=== PATIENT | female | born 1985 | race Caucasian/White ===

== ENCOUNTER 2016-12-04 22:51 | Emergency (ER) | payer OTHER ==
--- NOTE | 2016-12-05 06:36 | DIAGNOSTIC IMAGING REPORT ---
PROCEDURE: CT ABD/PELVIS WITH CONTRAST CLINICAL INDICATION: ABDOMINAL PAIN TECHNIQUE: 125 ml of Isovue 300 were injected intravenously and axial images were obtained of the entire abdomen and pelvis with sagittal and coronal reformations. COMPARISON: None. FINDINGS: ABDOMEN: Lung base are clear. Heart size is normal. Liver, gallbladder, pancreas, spleen, right adrenal gland and the kidneys are normal. Thickening of the left adrenal gland. Normal abdominal aorta. Surgical changes of the cecum and distal ileum PELVIS: The uterus, adnexa and bladder are normal. Small amount of free fluid the pelvis. No pelvic mass or inflammatory changes. 2.5 cm fat-containing midline supraumbilical hernia. No suspicious osseous lesions. IMPRESSION: 1. Surgical changes of the cecum and distal ileum 2. Small amount of free fluid in the pelvis 3. Results discussed with Dr. Reddy All CT scans at this facility use dose modulation, iterative reconstruction, and/or weight-based dosing when appropriate to reduce radiation dose to as low as reasonably achievable.
--- NOTE | 2016-12-05 06:48 | ED CLINICAL REPORT ---
Clinical Report - Physicians/Mid Levels [facility] [address] [place] [address] 12/04/2016 22:52 Patient: CAMILO BISWAS Time Seen: 23:22. Arrived- By private vehicle. Historian- patient. HISTORY OF PRESENT ILLNESS Chief Complaint: DIARRHEA. Depression. This started today and is still present. It was gradual in onset and has been waxing/waning. No vomiting, black stools, bloody stools or abdominal pain. She has had mild diarrhea. No bloody diarrhea. Has recently been on antibiotics. The illness is described as moderate. (Pt is currently a patient at the [facility] in [facility]. She presents with a report of diarrhea. She has a long history of Crohn's disease and is having her baseline number of stools per day (about 3 today - nonbloody; she has up to 30 with Crohn's flares). The facility requests medical clearance Patient states she has recently had an increase in a dose of her effexor for depression and has been experiencing increased depression and suicidal ideations since then. She went to the [facility] facility today to check in voluntarily. She reports that [facility] sent her to this ED "to stay the night and get cleared medically" before she is able to check in). Similar symptoms previously: Recent medical care: The patient was seen recently by a health care provider. REVIEW OF SYSTEMS No fever, muscle aches, difficulty with urination, dark urine or headache. No dizziness, sore throat, cough, chest pain or difficulty breathing. No excessive urination, skin rash, jaundice, back pain or fainting episodes. Denies current . All systems otherwise negative, except as recorded above. PAST HISTORY Primary physician: Dr Arcos at [facility]. Asthma. Pulmonary embolism. Pneumonia. Anemia. History of headaches. Crohn's disease (followed by GI). Anxiety. Depression. Surgeries: Bowel surgery (partial resection for Crohn's). Right knee surgery (ACL). (Anal fistula repair). Medications: KlonoPIN Oral. Albuterol Sulfate Inhalation. Vitamin D Oral 10,000 unit. PriLOSEC Oral (Capsule Delayed Release 20 mg) 1 capsule, 2x a day. Effexor XR Oral 75 mg, daily. Ferrous Sulfate Oral (Tablet 325 (65 Fe) mg), 2x a day. Spironolactone Oral (Tablet 50 mg) 1 tablet, daily. Mirapex Oral (Tablet 1 mg) 2 tablets, at bedtime. Allergies: morphine. Penicillin. SOCIAL HISTORY Smoker- current status unknown. No alcohol use or drug use. Is a local resident. FAMILY HISTORY Dad had throat cancer. ADDITIONAL NOTES The nursing notes have been reviewed. PHYSICAL EXAM Vital Signs: 12/04/2016 23:36 BP: 123/66. HR: 75. RR: 16. O2 saturation: 99%. Temp: 98.1 F. Pain level now: 0/10. Appearance: Alert. Oriented X3. Patient in mild distress. Eyes: Eyes normal inspection. No pale conjunctivae or scleral icterus. ENT: Pharynx normal. No pharyngeal erythema or tonsillar exudate. The mucous membranes are not dry. Neck: Normal inspection. Neck supple. CVS: Normal heart rate and rhythm. Heart sounds normal. Pulses normal. Respiratory: No respiratory distress. Breath sounds normal. Abdomen: Soft and nontender. No mass. Back: Normal inspection. Skin: Skin warm and dry. Normal skin color. Normal skin turgor. Extremities: Extremities exhibit normal ROM. No lower extremity edema. Neuro: Oriented X 3. No motor deficit. LABS, X-RAYS, AND EKG Abdominal CT: IMPRESSION: 1. Surgical changes of the cecum and distal ileum 2. Small amount of free fluid in the pelvis. Study type: abdomen and pelvis. Abdominal CT performed with IV contrast. The study was independently viewed by me, interpreted by the radiologist and discussed with the radiologist. Laboratory Tests: UA-Culture if indicated: (BRANDON: 12/04/2016 02:30) ( MsgRcvd 12/05/2016 02:46) Final results Test Result Flag Units (Reference) URINE COLOR YELLOW URINE APPEARANCE SLIGHTLY HAZY URINE GLUCOSE NEGATIVE (NEGATIVE) URINE BILIRUBIN NEGATIVE (NEGATIVE) URINE KETONE NEGATIVE (NEGATIVE) URINE SPECIFIC GRAVITY >= 1.030 (1.010-1.030) URINE PH 6.0 (5.0-8.0) URINE PROTEIN NEGATIVE (NEGATIVE) URINE UROBILINOGEN 0.2 EU/dL (0.2-1.0) URINE NITRITE NEGATIVE (NEGATIVE) URINE BLOOD NEGATIVE (NEGATIVE) URINE LEUK ESTERASE POSITIVE (NEGATIVE) URINE RBC 0-1 rbc/hpf (0-1) URINE WBC 10-15 wbc/hpf (0-1) URINE EPITHELIAL CELLS 5-10 EPI/hpf (0-5) URINE BACTERIA TRACE (<1+) (NONE SEEN) URINE COMMENT CULTURE INDICATED URINE CULTURES ARE SET-UP BASED ON THE FOLLOWING CRITERIA:POSITIVE NITRITEPOSITIVE LEUKOCYTE ESTERASEGREATER THAN 10 WHITE BLOOD CELLSMODERATE (2+) OR GREATER BACTERIA Urine: (BRANDON: 12/04/2016 02:30) ( [facility] 12/05/2016 02:47) Final results Test Result Flag Units (Reference) URINE NEGATIVE CBC w Diff: (BRANDON: 12/04/2016 23:47) ( [facility] 12/05/2016 00:09) Final results Test Result Flag Units (Reference) WHITE BLOOD COUNT 11.9 H K/uL (4.5-11.5) RED BLOOD COUNT 4.11 M/uL (4.00-5.20) HEMOGLOBIN 13.5 gm/dL (12.0-16.0) HEMATOCRIT 39.8 % (36.0-46.0) MEAN CELL VOLUME 97 fL (80-100) MEAN CORPUSCULAR HGB 33 pg (26-34) MEAN CORPUSCULAR HGB CONC 34 g/dL (31-37) RED CELL DISTRIBUTION WIDTH 13.5 % (11.6-14.8) PLATELET COUNT 385 K/uL (150-400) NEUTROPHIL % 59.9 % (50-75) LYMPH % 30.2 % (25-40) MONO % 6.9 % (3-14) EOSINOPHIL % 2.5 % (0-4) BASOPHIL % 0.5 % (0-2) Salicylate Level: (BRANDON: 12/04/2016 23:47) ( [facility] 12/05/2016 00:16) Final results Test Result Flag Units (Reference) SALICYLATE 3.9 mg/dL (2.8-20) Acetaminophen Level: (BRANDON: 12/04/2016 23:47) ( [facility] 12/05/2016 00:26) Final results Test Result Flag Units (Reference) ACETAMINOPHEN < 2.0 L ug/mL (10-30) ETHYL ALCOHOL <3 L mg/dL (3-10) Urine Drug Screen: (BRANDON: 12/04/2016 02:30) ( [facility] 12/05/2016 03:15) Final results Test Result Flag Units (Reference) AMPHETAMINE/METHAMPHETAMINE NEGATIVE (NEGATIVE) BARBITURATE NEGATIVE (NEGATIVE) BENZODIAZEPINE NEGATIVE (NEGATIVE) CANNABINOID NEGATIVE (NEGATIVE) COCAINE NEGATIVE (NEGATIVE) ECSTASY NEGATIVE (NEGATIVE) METHADONE NEGATIVE (NEGATIVE) OPIATE NEGATIVE (NEGATIVE) The urine drug screen is a qualitative screening test fordrug overdose and abuse. All screen results should beconsidered as presumptive.Drugs screened for are as follows:BenzodiazepinesCocaineAmphetamines/MetamphetaminesTHC (Tetrahydrocannabinol)OpiatesBarbituratesEcstasyMethadonePositive results are unconfirmed. For confirmation, notifythe lab for the specimen to be sent to the reference lab.All confirmations must be performed by a differentmethodology.The ingestion of natural herbal and plant productscontaining Ephedra/Ephedra metabolites can produce in urineone or more substances capable of cross reacting withamphetamine/methamphetamine immunoassays. These testsprovide a preliminary result only. A more specificalternative chemical method must be used to obtain aconfirmed analytical result. CMP: (BRANDON: 12/04/2016 23:47) ( [facility] 12/05/2016 01:08) Final results Test Result Flag Units (Reference) GLUCOSE 89 mg/dL (70-110) BUN 11 mg/dL (7-18) CREATININE 0.7 mg/dL (0.6-1.3) Estimated GFR >60 mL/min Estimated GFR- >60 mL/min Note: Persistent reduction over 3 months in eGFR<60 mL/min/1.73 m2 defines CKD. Patients with eGFR values>=60 mL/min/1.73 m2 may also have CKD if evidence ofpersistent proteinuria. Additional information may be foundat www.[email or web address].org. SODIUM 137 mmol/L (136-145) POTASSIUM 3.8 mmol/L (3.5-5.1) CHLORIDE 101 mmol/L (98-107) CARBON DIOXIDE 26 mmol/L (21-32) CALCIUM 9.0 mg/dL (8.5-10.1) TOTAL PROTEIN 7.7 g/dL (6.4-8.2) ALBUMIN 3.7 g/dL (3.3-5.0) BILIRUBIN, TOTAL 0.3 mg/dL (0.0-1.0) ALKALINE PHOSPHATASE 74 U/L (46-116) AST (SGOT) 14 L U/L (15-37) ALT (SGPT) 26 U/L (12-78) . Pulse Oximetry: 12/04/2016 23:36 O2 saturation: 99%. (FIO2 - room air). Interpretation: normal. PROGRESS AND PROCEDURES Course of Care: Normal Saline 1 liter IVPB given. Zofran 4 mg IVP given. Protonix 40 mg IVP given. Dilaudid 0.5 mg IVP given. 03:57 12/05/16. Patient is stable. 03:57 12/05/16. Pt has noted some abdominal discomfort now (states it is improving from earlier, but still present). Long history of Crohn's disease, but discomfort is somewhat different now than usual - pt believes it is related to not taking her usual medication at the usual time. She states she does not feel that she will currently try and harm herself or others - improved over earlier in the evening. No bed tonight at [facility], but expect opening in the am - pt expecting to stay the night in the ED and is concerned about getting home tonight. Discussed option of CT abd/pelvis with patient including risks (of radiation / cancer) and need to medically clear for the psychiatric facility - patient consents to proceed. Patient/family counseled. Old ED records reviewed. Disposition: Transferred. [facility]. CLINICAL IMPRESSION Diarrhea (chronic - secondary to Crohn's disease). Acute generalized abdominal pain of undetermined cause. Crohn's disease. No complications present. Acute urinary tract infection with cystitis. 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 INSTRUCTIONS Your Current Medications: CONTINUE TAKING THE FOLLOWING MEDICATIONS: Albuterol Sulfate Inhalation. Effexor XR Oral : 75 mg daily. Ferrous Sulfate Oral : Tablet 325 (65 Fe) mg, 2x a day. KlonoPIN Oral. Mirapex Oral : Tablet 1 mg, 2 tablets at bedtime. PriLOSEC Oral : Capsule Delayed Release 20 mg, 1 capsule 2x a day. Spironolactone Oral : Tablet 50 mg, 1 tablet daily. Vitamin D Oral : 10,000 unit. Prescription Medications: Trimethoprim-Sulfamethoxazole DS: take 1 tablet orally every 12 hours for 3 days. No refill. (Electronically signed by Polo Reddy DO 12/06/2016 8:29)
--- NOTE | 2016-12-05 06:48 | ED ORDER SUMMARY ---
..... Patient: CAMILO BISWAS OrderSheet [facility] VisitID: [id number] [place] [address] 31y, F Registration Date/Time: 12/04/2016 ORDER SHEET Weight: 77.1 kg (stated) Allergies: Penicillin, morphine GENERAL ORDERS: CBC w Diff Urgent (23:12/04/2016 PHutchinson DO) (Collected 23:51 RMarsden R.N.) (1:04 JSanders R.N.) CMP Urgent (23:12/04/2016 PHutchinson DO) (Collected 23:51 RMarsden R.N.) (1:04 JSanders R.N.) Stool for C. Difficile Urgent (:12/04/2016 son DO) (Ack 23:59 RKaruga) (Cancelled: Other2:43 JSanders R.N.) UA-Culture if indicated Urgent (23:12/04/2016 PHson DO) (Ack 23:59 RKaruga) (2:43 JSanders R.N.) Urine Drug Screen Urgent (23:27 12/04/2016 PHutchinson DO) (Ack 23:59 RKaruga) (2:43 JSanders R.N.) Urine Urgent (23:12/04/2016 PHutchinson DO) (Ack 23:59 RKaruga) (2:43 JSanders R.N.) Ethyl Alcohol Urgent (23:36 12/04/2016 PHutchinson DO) (Collected 23:51 RMarsden R.N.) (1:04 JSanders R.N.) Acetaminophen Level Urgent (23:36 12/04/2016 PHutchinson DO) (Collected 23:51 RMarsden R.N.) (1:04 JSanders R.N.) Salicylate Level Urgent (:12/04/2016 PHutchinson DO) (Collected 23:51 RMarsden R.N.) (1:04 JSanders R.N.) CT Abd/Pel w Cont (No) (GFR ok) (history of Crohn's disease and partial bowel resection) Urgent (05:20 12/05/2016 [facility]) (Ack 5:40 RKaruga) (6:55 JSanders R.N.) MEDICATION ORDERS: IV FLUIDS: IV NS : initial bolus 1000 mL (1000 mL/hr), then 1000 mL/hr for X2 (NOW) (23:26 12/04/2016 [facility]) (1:09 JSanders R.N.) Zofran IV 4 mg (NOW) (01:32 12/05/2016 [facility]) (Ack 1:40 JSanders R.N.) (2:01 JSanders R.N.) Protonix IVP 40mg 40 mg (Mix in NS 10ml over 2min) (01:33 12/05/2016 [facility]) (Ack 1:40 JSanders R.N.) (2:04 JSanders R.N.) Dilaudid IV 0.5 mg (HIGH ALERT MEDICATION, NOW) (03:55 12/05/2016 [facility]) (Ack 4:09 JSanders R.N.) (4:13 JSanders R.N.) Dilaudid IV 0.5 mg (HIGH ALERT MEDICATION, NOW) (05:20 12/05/2016 [facility]) (5:27 Luannou R.N.) ORDER SHEET NOTES: [Electronically signed by Jocelyn Mayorga R.N. (09:58 12/05/2016)] [Electronically signed by Polo Reddy DO (08:29 12/06/2016)] [Electronically locked/signed by Jocelyn Mayorga R.N. (09:58 12/05/2016)]
--- NOTE | 2016-12-05 06:48 | ED NURSING NOTES ---
Clinical Report - Nurses [place] [address] [place] [address] 12/04/2016 22:52 Patient: CAMILO BISWAS TRIAGE Triage time 21:07. Acuity: LEVEL 2. Chief Complaint: DEPRESSION and SUICIDAL THOUGHTS and (medical clearance). Alert. No acute distress. SEPSIS SCREEN: Sepsis Screen. Negative (no infection suspected/documented). ZAHIDA COMA SCORE: [place] Coma Scale: 15- eyes open spontaneously (4); best verbal response- oriented x 4 (5); best motor response- obeys commands (6). --23:33 Cherrie Adams R.N. 23:36 12/04/16. BP: 123/66 taken on the left arm, while sitting. HR: 75. RR: 16. O2 saturation: 99%. Temp: 98.1 F. Pain level now: 0/10. --23:38 Cherrie Adams R.N. Weight: 77.1 kg stated. Height/Length: 68 inches. BMI: 25.9. --23:32 Cherrie Adams R.N. Medications Mirapex Oral (Tablet 1 mg) 2 tablets, at bedtime. --23:23 Cherrie Adams R.N. Spironolactone Oral (Tablet 50 mg) 1 tablet, daily. --23:23 Cherrie Adams R.N. Ferrous Sulfate Oral (Tablet 325 (65 Fe) mg), 2x a day. --23:24 Cherrie Adams R.N. Effexor XR Oral 75 mg, daily. --23:24 Cherrie Adams R.N. PriLOSEC Oral (Capsule Delayed Release 20 mg) 1 capsule, 2x a day. --23:24 Cherrie Adams R.N. Vitamin D Oral 10,000 unit. --23:25 Cherrie Adams R.N. Colonapine 1mg, PRN. --23:26 Cherrie Adams R.N. Albuterol Sulfate Inhalation. --23:27 Cherrie Adams R.N. Allergies Penicillin. --23:26 Cherrie Adams R.N. morphine. --23:26 Cherrie Adams R.N. History Arrived by private vehicle. Historian: patient. Accompanied by family. Primary physician (Dr Josselyn Chase [facility]). ( Patient states she has recently had an increase in a dose of her effexor for depression and has been experiencing increased depression and suicidal ideations since then. She went to the [facility] facility today to check in voluntarily. She reports that [facility] sent her to this ED "to stay the night and get cleared medically" before she is able to check in.). She has had anxiety and sleeping difficulties. ( diarrhea). PAST MEDICAL HX: Immunizations: up-to-date. Denies current . SOCIAL HX: Heavy tobacco smoker- less than 1 pack per day. No alcohol use or drug use. SELF HARM ASSESSMENT: A self harm assessment was performed. The patient answered "yes" to the question "Have you recently felt down, depressed, or hopeless?", "Have you noticed less interest or pleasure in doing things?", "Do you have thoughts of harming or killing yourself?" and "Have you ever tried to hurt yourself before today?" and "no" to the question "Are you here because you tried to hurt yourself?", "Have you recently had thoughts about harming or killing others?" and "Do you have any dangerous items in your possession?". FALL RISK ASSESSMENT: Fall risk assessment completed. No fall risk identified. NUTRITIONAL RISK ASSESSMENT: The nutritional risk assessment revealed no deficiencies. FUNCTIONAL ASSESSMENT: Functional assessment: no impairments noted. LEARNING NEEDS ASSESSMENT: The learning needs assessment revealed no barriers. SKIN INTEGRITY ASSESSMENT: Skin integrity risk assessment completed. No skin integrity risk identified. --23:33 Cherrie Adams R.N. PROBLEMS: Depression. Eustachian Tube Dysfunction. Pharyngitis. Perianal abscess. Strep Throat. Chronic Headache. Head Injury. Migraine Headache. Concussion. Crohn's Disease. LNMP - Last Normal Menstrual Period. Pneumonia. Pulmonary Embolism. Chrons disease. --23:27 Cherrie Adams R.N. Asthma. --23:27 Cherrie Adams R.N. ADDITIONAL SURGERIES: ACL on right knee. Colon resection. Knee Surgery. --23:27 Cherrie Adams R.N. Anal fistula repair. --23:28 Cherrie Adams R.N. Interventions ID band on patient. To treatment room. --23:33 Cherrie Adams R.N. PHYSICAL ASSESSMENT <<STRICKEN ENTRY-- To room via stretcher. GENERAL / NEURO / PSYCH: Alert. Appears in no acute distress. The patient is disoriented to person, place and time. Speech within normal limits. Affect appears normal. Patient appears calm and cooperative. Good eye contact. Patient appears well-nourished and neat and clean. RESPIRATORY: Respirations not labored. CVS: Capillary refill less than 2 seconds. SKIN: Skin is warm and dry. Laceration; (Left upper eyelid). --04:46 Sheriff Gibbons R.N. --END STRIKE>> Charted On Wrong Patient --04:47 Sheriff Gibbons R.N. NURSING PROGRESS NOTES 23:51 12/04/2016 Site #1 started via IV in the right antecubital space with an 20g angiocath; one attempt. Blood drawn: rainbow set. Labeled in the presence of the patient and sent to the lab. Saline lock flushed with 5 mL saline. --23:51 Cherrie Adams R.N. 23:54 12/04/16. Care transferred and report given (to Chris TITUS). --23:54 Cherrie Adams R.N. 01:09 12/05/2016 Started bag #1 1000 mL IV Fluids IV NS (Saline); bolus of 1000 mL over 1 hour(s) then at 1000 mL/hr over 1 hour(s) via site #1 via dial-a-flow. Allergies verified and confirmed 5 rights. IV patency established. IV site checked: no pain, redness, or swelling. IV flushed thoroughly pre- and post-medication administration. --01:09 Nancy Pacheco R.N. 01:10 12/05/16. BP: 131/72 (large adult cuff) taken on the left arm, while sitting. HR: 80. RR: 18. O2 saturation: 100%. Pain level now: 0/10. --01:14 Nancy Pacheco R.N. 01:14 12/05/16. ( Patient states she is nauseated and needs zofran and prilosec for GERD and nausea, she informed me she took Fe prior to coming in, gave patient crackers to nibble on. Requested medication from Physician). --01:14 Nancy Pacheco R.N. 02:01 12/05/2016 Zofran (Ondansetron HCl) IVP 4 mg given over 2 minute(s) via site #1. Allergies verified and confirmed 5 rights. IV patency established. IV site checked: no pain, redness, or swelling. IV flushed thoroughly pre- and post-medication administration. IVP given by RN. --02:01 Nancy Pacheco R.N. 02:04 12/05/2016 PROTONIX (Pantoprazole Sodium) IVP 40 mg given over 4 minute(s) via site #1. Allergies verified and confirmed 5 rights. IV patency established. IV site checked: no pain, redness, or swelling. IV flushed thoroughly pre- and post-medication administration. IVP given by RN. --02:04 Nancy Pacheco R.N. 02:05 12/05/16. BP: 127/69 (large adult cuff) taken on the left arm. HR: 72. RR: 20. O2 saturation: 98% on room air. Pain level now: 12/10. --02:05 Nancy Pacheco R.N. 04:13 12/05/2016 Dilaudid (HYDROmorphone HCl PF) IVP 0.5 mg given over 2 minute(s) via site #1. Allergies verified, confirmed 5 rights and sedative warning given to the patient. IV patency established. IV site checked: no pain, redness, or swelling. IV flushed thoroughly pre- and post-medication administration. IVP given by RN. --04:13 Nancy Pacheco R.N. 04:13 12/05/16. BP: 130/81 (large adult cuff) taken on the left arm, while sitting. HR: 81. RR: 18 (regular). O2 saturation: 94% on room air. Pain level now: 09/10. --04:16 Nancy Pacheco R.N. 04:16 12/05/16. --04:16 Nancy Pacheco R.N. 05:27 12/05/2016 Dilaudid (HYDROmorphone HCl PF) IVP 0.5 mg given over 1 minute(s) via site #1. Allergies verified, confirmed 5 rights and sedative warning given to the patient. IV patency established. IV site checked: no pain, redness, or swelling. IV flushed thoroughly pre- and post-medication administration. IVP given by RN. --05:27 Sheriff Gibbons R.N. 06:52 12/05/16. ( Patient up walking halls, she states she is anxious). --06:52 Nancy Pacheco R.N. 08:26 12/05/2016 Site #1 removed. Pressure dressing applied. --08:26 Jocelyn Mayorga R.N. ( 0730- Report taken from tacho bustos to assume care. Pt. sleeping. breakfast tray ordered. awaiting bed at [facility].). --08:27 Jocelyn Mayorga R.N. 08:44 12/05/16. ( Pt c/o anxiety, wants to smoke, notified, pt states that if she walks this might helped, walked with patient two laps around the ER and back to room. Pt stated this made her feel better, pt refused nicotine patch.). --08:44 David Temple R.N. DISPOSITION / DISCHARGE Departure time: 09:57. Transferred ([facility].). Report was given to a nurse. (TACHO Mccurdy). Patient's personal items include, sent with patient. --09:57 Jocelyn Mayorga R.N. 09:50 12/05/16. BP: 130/81. HR: 81. RR: 18. O2 saturation: 99%. Pain level now: 0/10. --09:57 Jocelyn Mayorga R.N. Locked/Released at 12/05/2016 9:58 by Jocelyn Mayorga R.N.
--- NOTE | 2016-12-05 06:48 | ED CLINICAL REPORT ---
Clinical Report - Physicians/Mid Levels [facility] [address] [place] [address] 12/04/2016 22:52 Patient: CAMILO BISWAS Time Seen: 23:22. Arrived- By private vehicle. Historian- patient. HISTORY OF PRESENT ILLNESS Chief Complaint: DIARRHEA. Depression. This started today and is still present. It was gradual in onset and has been waxing/waning. No vomiting, black stools, bloody stools or abdominal pain. She has had mild diarrhea. No bloody diarrhea. Has recently been on antibiotics. The illness is described as moderate. (Pt is currently a patient at the [facility] in [facility]. She presents with a report of diarrhea. She has a long history of Crohn's disease and is having her baseline number of stools per day (about 3 today - nonbloody; she has up to 30 with Crohn's flares). The facility requests medical clearance Patient states she has recently had an increase in a dose of her effexor for depression and has been experiencing increased depression and suicidal ideations since then. She went to the [facility] facility today to check in voluntarily. She reports that [facility] sent her to this ED "to stay the night and get cleared medically" before she is able to check in). Similar symptoms previously: Recent medical care: The patient was seen recently by a health care provider. REVIEW OF SYSTEMS No fever, muscle aches, difficulty with urination, dark urine or headache. No dizziness, sore throat, cough, chest pain or difficulty breathing. No excessive urination, skin rash, jaundice, back pain or fainting episodes. Denies current . All systems otherwise negative, except as recorded above. PAST HISTORY Primary physician: Dr Arcos at [facility]. Asthma. Pulmonary embolism. Pneumonia. Anemia. History of headaches. Crohn's disease (followed by GI). Anxiety. Depression. Surgeries: Bowel surgery (partial resection for Crohn's). Right knee surgery (ACL). (Anal fistula repair). Medications: KlonoPIN Oral. Albuterol Sulfate Inhalation. Vitamin D Oral 10,000 unit. PriLOSEC Oral (Capsule Delayed Release 20 mg) 1 capsule, 2x a day. Effexor XR Oral 75 mg, daily. Ferrous Sulfate Oral (Tablet 325 (65 Fe) mg), 2x a day. Spironolactone Oral (Tablet 50 mg) 1 tablet, daily. Mirapex Oral (Tablet 1 mg) 2 tablets, at bedtime. Allergies: morphine. Penicillin. SOCIAL HISTORY Smoker- current status unknown. No alcohol use or drug use. Is a local resident. FAMILY HISTORY Dad had throat cancer. ADDITIONAL NOTES The nursing notes have been reviewed. PHYSICAL EXAM Vital Signs: 12/04/2016 23:36 BP: 123/66. HR: 75. RR: 16. O2 saturation: 99%. Temp: 98.1 F. Pain level now: 0/10. Appearance: Alert. Oriented X3. Patient in mild distress. Eyes: Eyes normal inspection. No pale conjunctivae or scleral icterus. ENT: Pharynx normal. No pharyngeal erythema or tonsillar exudate. The mucous membranes are not dry. Neck: Normal inspection. Neck supple. CVS: Normal heart rate and rhythm. Heart sounds normal. Pulses normal. Respiratory: No respiratory distress. Breath sounds normal. Abdomen: Soft and nontender. No mass. Back: Normal inspection. Skin: Skin warm and dry. Normal skin color. Normal skin turgor. Extremities: Extremities exhibit normal ROM. No lower extremity edema. Neuro: Oriented X 3. No motor deficit. LABS, X-RAYS, AND EKG Abdominal CT: IMPRESSION: 1. Surgical changes of the cecum and distal ileum 2. Small amount of free fluid in the pelvis. Study type: abdomen and pelvis. Abdominal CT performed with IV contrast. The study was independently viewed by me, interpreted by the radiologist and discussed with the radiologist. Laboratory Tests: UA-Culture if indicated: (BRANDON: 12/04/2016 02:30) ( MsgRcvd 12/05/2016 02:46) Final results Test Result Flag Units (Reference) URINE COLOR YELLOW URINE APPEARANCE SLIGHTLY HAZY URINE GLUCOSE NEGATIVE (NEGATIVE) URINE BILIRUBIN NEGATIVE (NEGATIVE) URINE KETONE NEGATIVE (NEGATIVE) URINE SPECIFIC GRAVITY >= 1.030 (1.010-1.030) URINE PH 6.0 (5.0-8.0) URINE PROTEIN NEGATIVE (NEGATIVE) URINE UROBILINOGEN 0.2 EU/dL (0.2-1.0) URINE NITRITE NEGATIVE (NEGATIVE) URINE BLOOD NEGATIVE (NEGATIVE) URINE LEUK ESTERASE POSITIVE (NEGATIVE) URINE RBC 0-1 rbc/hpf (0-1) URINE WBC 10-15 wbc/hpf (0-1) URINE EPITHELIAL CELLS 5-10 EPI/hpf (0-5) URINE BACTERIA TRACE (<1+) (NONE SEEN) URINE COMMENT CULTURE INDICATED URINE CULTURES ARE SET-UP BASED ON THE FOLLOWING CRITERIA:POSITIVE NITRITEPOSITIVE LEUKOCYTE ESTERASEGREATER THAN 10 WHITE BLOOD CELLSMODERATE (2+) OR GREATER BACTERIA Urine: (BRANDON: 12/04/2016 02:30) ( [facility] 12/05/2016 02:47) Final results Test Result Flag Units (Reference) URINE NEGATIVE CBC w Diff: (BRANDON: 12/04/2016 23:47) ( [facility] 12/05/2016 00:09) Final results Test Result Flag Units (Reference) WHITE BLOOD COUNT 11.9 H K/uL (4.5-11.5) RED BLOOD COUNT 4.11 M/uL (4.00-5.20) HEMOGLOBIN 13.5 gm/dL (12.0-16.0) HEMATOCRIT 39.8 % (36.0-46.0) MEAN CELL VOLUME 97 fL (80-100) MEAN CORPUSCULAR HGB 33 pg (26-34) MEAN CORPUSCULAR HGB CONC 34 g/dL (31-37) RED CELL DISTRIBUTION WIDTH 13.5 % (11.6-14.8) PLATELET COUNT 385 K/uL (150-400) NEUTROPHIL % 59.9 % (50-75) LYMPH % 30.2 % (25-40) MONO % 6.9 % (3-14) EOSINOPHIL % 2.5 % (0-4) BASOPHIL % 0.5 % (0-2) Salicylate Level: (BRANDON: 12/04/2016 23:47) ( [facility] 12/05/2016 00:16) Final results Test Result Flag Units (Reference) SALICYLATE 3.9 mg/dL (2.8-20) Acetaminophen Level: (BRANDON: 12/04/2016 23:47) ( [facility] [place] 12/05[facility]:26) Final results Test Result Flag Units (Reference) ACETAMINOPHEN < 2.0 L ug/mL (10-30) ETHYL ALCOHOL <3 L mg/dL (3-10) Urine Drug Screen: (BRANDON: 12/04/2016 02:30) ( [facility] [place] 12/05/2016 03:15) Final results Test Result Flag Units (Reference) AMPHETAMINE/METHAMPHETAMINE NEGATIVE (NEGATIVE) BARBITURATE NEGATIVE (NEGATIVE) BENZODIAZEPINE NEGATIVE (NEGATIVE) CANNABINOID NEGATIVE (NEGATIVE) COCAINE NEGATIVE (NEGATIVE) ECSTASY NEGATIVE (NEGATIVE) METHADONE NEGATIVE (NEGATIVE) OPIATE NEGATIVE (NEGATIVE) The urine drug screen is a qualitative screening test fordrug overdose and abuse. All screen results should beconsidered as presumptive.Drugs screened for are as follows:BenzodiazepinesCocaineAmphetamines/MetamphetaminesTHC (Tetrahydrocannabinol)OpiatesBarbituratesEcstasyMethadonePositive results are unconfirmed. For confirmation, notifythe lab for the specimen to be sent to the reference lab.All confirmations must be performed by a differentmethodology.The ingestion of natural herbal and plant productscontaining Ephedra/Ephedra metabolites can produce in urineone or more substances capable of cross reacting withamphetamine/methamphetamine immunoassays. These testsprovide a preliminary result only. A more specificalternative chemical method must be used to obtain aconfirmed analytical result. CMP: (BRANDON: 12/04/2016 23:47) ( [facility] [place] 12/05/2016 01:08) Final results Test Result Flag Units (Reference) GLUCOSE 89 mg/dL (70-110) BUN 11 mg/dL (7-18) CREATININE 0.7 mg/dL (0.6-1.3) Estimated GFR >60 mL/min Estimated GFR- >60 mL/min Note: Persistent reduction over 3 months in eGFR<60 mL/min/1.73 m2 defines CKD. Patients with eGFR values>=60 mL/min/1.73 m2 may also have CKD if evidence ofpersistent proteinuria. Additional information may be foundat www.kidney.org. SODIUM 137 mmol/L (136-145) POTASSIUM 3.8 mmol/L (3.5-5.1) CHLORIDE 101 mmol/L (98-107) CARBON DIOXIDE 26 mmol/L (21-32) CALCIUM 9.0 mg/dL (8.5-10.1) TOTAL PROTEIN 7.7 g/dL (6.4-8.2) ALBUMIN 3.7 g/dL (3.3-5.0) BILIRUBIN, TOTAL 0.3 mg/dL (0.0-1.0) ALKALINE PHOSPHATASE 74 U/L (46-116) AST (SGOT) 14 L U/L (15-37) ALT (SGPT) 26 U/L (12-78) . Pulse Oximetry: 12/04/2016 23:36 O2 saturation: 99%. (FIO2 - room air). Interpretation: normal. PROGRESS AND PROCEDURES Course of Care: Normal Saline 1 liter IVPB given. Zofran 4 mg IVP given. Protonix 40 mg IVP given. Dilaudid 0.5 mg IVP given. 03:57 12/05/16. Patient is stable. 03:57 12/05/16. Pt has noted some abdominal discomfort now (states it is improving from earlier, but still present). Long history of Crohn's disease, but discomfort is somewhat different now than usual - pt believes it is related to not taking her usual medication at the usual time. She states she does not feel that she will currently try and harm herself or others - improved over earlier in the evening. No bed tonight at [facility], but expect opening in the am - pt expecting to stay the night in the ED and is concerned about getting home tonight. Discussed option of CT abd/pelvis with patient including risks (of radiation / cancer) and need to medically clear for the psychiatric facility - patient consents to proceed. Patient/family counseled. Old ED records reviewed. Disposition: Transferred. [facility]. CLINICAL IMPRESSION Diarrhea (chronic - secondary to Crohn's disease). Acute generalized abdominal pain of undetermined cause. Crohn's disease. No complications present. Acute urinary tract infection with cystitis. 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 INSTRUCTIONS Your Current Medications: CONTINUE TAKING THE FOLLOWING MEDICATIONS: Albuterol Sulfate Inhalation. Effexor XR Oral : 75 mg daily. Ferrous Sulfate Oral : Tablet 325 (65 Fe) mg, 2x a day. KlonoPIN Oral. Mirapex Oral : Tablet 1 mg, 2 tablets at bedtime. PriLOSEC Oral : Capsule Delayed Release 20 mg, 1 capsule 2x a day. Spironolactone Oral : Tablet 50 mg, 1 tablet daily. Vitamin D Oral : 10,000 unit. Prescription Medications: Trimethoprim-Sulfamethoxazole DS: take 1 tablet orally every 12 hours for 3 days. No refill. (Electronically signed by Polo Reddy DO 12/06/2016 8:29)
--- NOTE | 2016-12-05 06:48 | ED ORDER SUMMARY ---
..... Patient: CAMILO BISWAS OrderSheet [facility] VisitID: [id number] [place] [address] 31y, F Registration Date/Time: 12/04/2016 ORDER SHEET Weight: 77.1 kg (stated) Allergies: Penicillin, morphine GENERAL ORDERS: CBC w Diff Urgent (23:12/04/2016 PHutchinson DO) (Collected 23:51 RMarsden R.N.) (1:04 JSanders R.N.) CMP Urgent (23:12/04/2016 PHutchinson DO) (Collected 23:51 RMarsden R.N.) (1:04 JSanders R.N.) Stool for C. Difficile Urgent (:12/04/2016 son DO) (Ack 23:59 RKaruga) (Cancelled: Other2:43 JSanders R.N.) UA-Culture if indicated Urgent (23:12/04/2016 PHson DO) (Ack 23:59 RKaruga) (2:43 JSanders R.N.) Urine Drug Screen Urgent (23:27 12/04/2016 PHutchinson DO) (Ack 23:59 RKaruga) (2:43 JSanders R.N.) Urine Urgent (23:12/04/2016 PHutchinson DO) (Ack 23:59 RKaruga) (2:43 JSanders R.N.) Ethyl Alcohol Urgent (23:36 12/04/2016 PHutchinson DO) (Collected 23:51 RMarsden R.N.) (1:04 JSanders R.N.) Acetaminophen Level Urgent (23:36 12/04/2016 PHutchinson DO) (Collected 23:51 RMarsden R.N.) (1:04 JSanders R.N.) Salicylate Level Urgent (:12/04/2016 PHutchinson DO) (Collected 23:51 RMarsden R.N.) (1:04 JSanders R.N.) CT Abd/Pel w Cont (No) (GFR ok) (history of Crohn's disease and partial bowel resection) Urgent (05:20 12/05/2016 [facility]) (Ack 5:40 RKaruga) (6:55 JSanders R.N.) MEDICATION ORDERS: IV FLUIDS: IV NS : initial bolus 1000 mL (1000 mL/hr), then 1000 mL/hr for X2 (NOW) (23:26 12/04/2016 [facility]) (1:09 JSanders R.N.) Zofran IV 4 mg (NOW) (01:32 12/05/2016 [facility]) (Ack 1:40 JSanders R.N.) (2:01 JSanders R.N.) Protonix IVP 40mg 40 mg (Mix in NS 10ml over 2min) (01:33 12/05/2016 [facility]) (Ack 1:40 JSanders R.N.) (2:04 JSanders R.N.) Dilaudid IV 0.5 mg (HIGH ALERT MEDICATION, NOW) (03:55 12/05/2016 [facility]) (Ack 4:09 JSanders R.N.) (4:13 JSanders R.N.) Dilaudid IV 0.5 mg (HIGH ALERT MEDICATION, NOW) (05:20 12/05/2016 [facility]) (5:27 Luannou R.N.) ORDER SHEET NOTES: [Electronically signed by Jocelyn Mayorga R.N. (09:58 12/05/2016)] [Electronically signed by Polo Reddy DO (08:29 12/06/2016)] [Electronically locked/signed by Jocelyn Mayorga R.N. (09:58 12/05/2016)]
--- NOTE | 2016-12-06 08:29 | ED MED RECONCILIATION SUMMARY ---
Patient: CAMILO BISWAS Medication Reconciliation Report [facility] VisitID: [id number] [address] [place] [address] 31y, F Registration Date/Time: 12/04/2016 Weight: 77.1 kg Height/Length: 68 in. BMI: 25.9 ALLERGIES: morphine, Penicillin The patient's Home Medications are listed below: CONTINUE TAKING THE FOLLOWING MEDICATIONS: Albuterol Sulfate Inhalation Effexor XR Oral 75 mg, daily Ferrous Sulfate Oral (325 (65 Fe) mg), 2x a day KlonoPIN Oral Mirapex Oral (1 mg) 2 tablets, at bedtime PriLOSEC Oral (20 mg) 1 capsule, 2x a day Spironolactone Oral (50 mg) 1 tablet, daily Vitamin D Oral 10,000 unit The source(s) of the original Home Medication information: Not obtained. The following Medications were given to the patient in the Emergency Department: IV NS IV Fluids bolus 1000 mL over 1 hour(s), then 1000 mL/hr, administered: 12/05/2016 1:09:00 AM Zofran [IVP] IVP 4 mg, administered: 12/05/2016 2:01:00 AM PROTONIX [IVP] IVP 40 mg, administered: 12/05/2016 2:04:00 AM Dilaudid [IVP] IVP 0.5 mg, administered: 12/05/2016 4:13:00 AM Dilaudid [IVP] IVP 0.5 mg, administered: 12/05/2016 5:27:00 AM The following Medications were prescribed to the patient: Trimethoprim-Sulfamethoxazole DS: take 1 tablet orally every 12 hours for 3 days. No refill. -- Polo Reddy DO
--- NOTE | 2016-12-06 08:29 | ED MAR SUMMARY ---
..... Medication Administration Record [facility] [address] [place] [address] Patient: CAMILO BISWAS Visit ID: [id number] 31y, F Weight: 77.1 kg Height/Length: 68 in BMI: 25.9 ALLERGIES: morphine, Penicillin Start 01:09 12/05/2016 Nancy Pacheco R.N. Medication Administered: IV NS (SALINE), Dose: IV Fluids over 1 hour(s), Rate: 1000 mL/hr, Bolus: 1000 mL over 1 hour(s), Dispensed: 1000 mL bag, Site: #1 right AC. Medication Ordered: IV NS : initial bolus 1000 mL (1000 mL/hr), then 1000 mL/hr for X2 (NOW). Given 02:12/05/2016 Nancy Pacheco R.N. Medication Administered: ZOFRAN [IVP] (ONDANSETRON HCL), Dose: 4 mg IVP over 2 minute(s), Site: #1 right AC. Medication Ordered: Zofran IV 4 mg (NOW). Given 02:04 12/05/2016 Nancy Pacheco R.N. Medication Administered: PROTONIX [IVP] (PANTOPRAZOLE SODIUM), Dose: 40 mg IVP over 4 minute(s), Site: #1 right AC. Medication Ordered: Protonix IVP 40mg 40 mg (Mix in NS 10ml over 2min). Given 04:13 12/05/2016 Nancy Pacheco R.N. Medication Administered: DILAUDID [IVP] (HYDROMORPHONE HCL PF), Dose: 0.5 mg IVP over 2 minute(s), Site: #1 right AC. Medication Ordered: Dilaudid IV 0.5 mg (HIGH ALERT MEDICATION, NOW). Given 05:27 12/05/2016 Sheriff Gibbons R.N. Medication Administered: DILAUDID [IVP] (HYDROMORPHONE HCL PF), Dose: 0.5 mg IVP over 1 minute(s), Site: #1 right AC. Medication Ordered: Dilaudid IV 0.5 mg (HIGH ALERT MEDICATION, NOW).
--- NOTE | 2016-12-06 08:29 | ED DISCHARGE INSTRUCTIONS ---
Patient: CAMILO BISWAS General Instructions [facility] VisitID: [id number] [place] [address] 31y, F Registration Date/Time: 12/04/2016 Diarrhea (chronic - secondary to Crohn's disease). Acute generalized abdominal pain of undetermined cause. Crohn's disease. No complications present. Acute urinary tract infection with cystitis. 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 INSTRUCTIONS Your Current Medications: CONTINUE TAKING THE FOLLOWING MEDICATIONS: Albuterol Sulfate Inhalation. Effexor XR Oral : 75 mg daily. Ferrous Sulfate Oral : Tablet 325 (65 Fe) mg, 2x a day. KlonoPIN Oral. Mirapex Oral : Tablet 1 mg, 2 tablets at bedtime. PriLOSEC Oral : Capsule Delayed Release 20 mg, 1 capsule 2x a day. Spironolactone Oral : Tablet 50 mg, 1 tablet daily. Vitamin D Oral : 10,000 unit. Prescription Medications: Trimethoprim-Sulfamethoxazole DS: take 1 tablet orally every 12 hours for 3 days. No refill. ADDITIONAL INFORMATION Abdominal Pain, Unknown Cause (Female) The exact cause of your abdominal (stomach) pain is not certain. This does not mean that this is something to worry about, or the right tests were not done. Everyone likes to know the exact cause of the problem, but sometimes with abdominal pain, there is no clear-cut cause, and this could be a good thing. The good news is that your symptoms can be treated, and you will feel better. Your condition does not seem serious now; however, sometimes the signs of a serious problem may take more time to appear. For this reason,it is important for you to watch for any new symptoms, problems,or worsening of your condition. Over the next few days, the abdominal pain may come and go, or be continuous. Other common symptoms can include nausea and vomiting. Sometimes it can be difficult to tell if you feel nauseous, you may just feel bad and not associate that feeling with nausea. Constipation, diarrhea, and a fever may go along with the pain. The pain may continue even if treated correctly over the following days. Depending on how things go, sometimes the cause can become clear and may require further or different treatment. Additional evaluations, medications, or tests may be needed. Home care Your health care provider may prescribe medications for pain, symptoms, or an infection. Follow the health care provider's instructions for taking these medications. General care Rest until your next exam. No strenuous activities. Try to find positions that ease discomfort. A small pillow placed on the abdomen may help relieve pain. Something warm on your abdomen (such as a heating pad) may help, but be careful not to burn yourself. Diet Do not force yourself to eat, especially if having cramps, vomiting, or diarrhea. Water is important so you do not get dehydrated. Soup may also be good. Sports drinks may also help, especially if they are not too acidic. Make sure you don't drink sugary drinks as this can make things worse. Take liquids in small amounts. Do not guzzle them. Caffeine sometimes makes the pain and cramping worse. Avoid dairy products if you have vomiting or diarrhea. Don't eat large amounts at a time. Wait a few minutes between bites. Eat a diet low in fiber (called a low-residue diet). Foods allowed include refined breads, white rice, fruit and vegetable juices without pulp, tender meats. These foods will pass more easily through the intestine. Avoid whole-grain foods, whole fruits and vegetables, meats, seeds and nuts, fried or fatty foods, dairy, alcohol and spicy foods until your symptoms go away. Follow-up care Follow up with your health care provider as instructed, or if your pain does not begin to improve in the next 24 hours. When to seek medical care Seek prompt medical care if any of the following occur: Pain gets worse or moves to the right lower abdomen New or worsening vomiting or diarrhea Swelling of the abdomen Unable to pass stool for more than three days Fever of 100.4F (38C) or higher, or as directed by your healthcare provider. Blood in vomit or bowel movements (dark red or black color) Jaundice (yellow color of eyes and skin) Weakness, dizziness Chest, arm, back, neck or jaw pain Unexpected vaginal bleeding or missed period Call 911 Call emergency services if any of the following occur: Trouble breathing Confusion Fainting or loss of consciousness Rapid heart rate Seizure Crohns Disease Crohns disease is a chronic inflammation of the intestinal tract that comes and goes. Crohns is a form of Inflammatory Bowel Disease. The exact cause is not known. Chronic diarrhea may alternate with constipation. During a symptom flare, there may be intense abdominal pain and fever. Mucus, blood or pus may appear in the stool. This is a chronic illness and episodes of inflammation come and go over time. When the disease is not active, there are usually no symptoms. Home Care: DIET: Talk to your doctor or ask for a referral to a dietitian to develop a meal plan that works for you. Learn what foods worsen your symptoms. Keeping a food diary may help with this. Eating smaller meals at more frequent intervals (4-5 times a day). Avoid greasy or fried foods. Limit consumption of milk and milk products (butter, margarine, cream sauces). If you are lactose intolerant ask your doctor to advise a digestive supplement. During a flare-up of your symptoms, avoid high fiber foods such as nuts, corn, popcorn and [place]awk vegetables. MEDICATIONS: For mild to moderate cramping and diarrhea, you may use Imodium AD ([id number]), unless another medicine was prescribed. For acute flares of your illness, prescription medicines can be prescribed. Contact your doctor if this is needed. Follow Up with your doctor as advised by your staff. Support Groups for persons Crohns disease can be a source of useful information on how others are coping with this illness. They are available in person, on the phone, or via the Internet. Contact the following resources for more information. Crohns [employer] 256.115.9495 www.ccfa.org National Digestive Diseases Information Clearinghouse (NDDIC) 749.972.3583 www.digestive.niddk.nih.gov Get Prompt Medical Attention if any of the following occur: Fever of 100.4F(38C) or higher, or as directed by your healthcare provider Abdominal pain that does not respond to usual measures Mucus, pus or blood in the stool (dark or bright red) Repeated vomiting Abdominal swelling and pain that does not go away after a few hours Bladder Infection,Female (Adult) A bladder infection ("cystitis" or "UTI") usually causes a constant urge to urinate and a burning when passing urine. Urine may be cloudy, smelly or dark. There may be pain in the lower abdomen. A bladder infection occurs when bacteria from the vaginal area enter the bladder opening (urethra). This can occur from sexual intercourse, wearing tight clothing, dehydration and other factors. Home Care: Drink lots of fluids (at least 6-8 glasses a day, unless you must restrict fluids for other medical reasons). This will force the medicine into your urinary system and flush the bacteria out of your body. Avoid sexual intercourse until your symptoms are gone. Avoid caffeine, alcohol and spicy foods. These can irritate the bladder. A bladder infection is treated with antibiotics. You may also be given Pyridium (generic = phenazopyridine) to reduce the burning sensation. This medicine will cause your urine to become a bright orange color. The orange urine may stain clothing. You may wear a pad or panty-liner to protect clothing. Preventing Future Infections: Always wipe from front to back after a bowel movement. Keep the genital area clean and dry. Drink plenty of fluids each day to avoid dehydration. Both sexual partners should wash before intercourse. Urinate right after intercourse to flush out the bladder. Wear cotton underwear and cotton-lined panty hose; avoid tight-fitting pants. If you are on control pills and are having frequent bladder infections, discuss with your doctor. Follow Up: Return to this facility or see your doctor if ALL symptoms are not gone after three days of treatment. Get Prompt Medical Attention if any of the following occur: Fever of 100.4F (38C) or higher, or as directed by your healthcare provider No improvement by the third day of treatment Increasing back or abdominal pain Repeated vomiting; unable to keep medicine down Weakness, dizziness or fainting Vaginal discharge Pain, redness or swelling in the labia (outer vaginal area) Depression Depression is one of the most common mental health problems today. It is not just a state of unhappiness or sadness. It is a true disease. The cause seems to be related to a decrease in chemicals that transmit signals in the brain. Having a family history of depression, alcoholism or suicide increases the risk. Chronic illness, chronic pain, migraine headaches and high emotional stress also increase the risk. Depression can cause many different symptoms, such as: -- Loss of appetite -- Over-eating -- Not being able to sleep -- Sleeping too much -- Tiredness not related to physical exertion -- Restlessness or irritability -- Slowness of movement or speech -- Feeling depressed or withdrawn -- Loss of interest in things you once enjoyed -- Difficulty in concentrating, poor memory, have trouble making decisions -- Thoughts of harming or killing oneself, or thoughts that life is not worth living -- Low self-esteem The best treatment for depression is a combination of medicine and psychotherapy. Antidepressant medicines can reduce suffering and can improve the ability to function during the depressed period. Therapy can offer emotional support and help you understand emotional factors that may be causing the depression. Home Care: 1) Be kind to yourself. Make it a point to do things that you enjoy (gardening, walking in nature, going to a movie, etc.). Reward yourself for small successes. 2) Take care of your physical body. Eat a balanced diet (low in saturated fat and high in fruits and vegetables). Establish an exercise plan at least 3 times a week for 30 minutes. Even mild-moderate exercise (like brisk walking) can make you feel better. 3) Avoid alcohol, which can make depression worse. Follow-Up with your doctor as advised. It is important to keep in contact with a health care provider until your symptoms begin to improve. Get Prompt Medical Attention if any of the following occur: -- Feeling extreme depression, fear, anxiety, or anger toward yourself or others -- Feeling out of control -- Feeling that you may try to harm yourself or another -- Hearing voices that others do not hear -- Seeing things that others do not see -- Cant sleep or eat for 3 days in a row Sulfamethoxazole, Trimethoprim Oral tablet What is this medicine? SULFAMETHOXAZOLE; TRIMETHOPRIM or SMX-TMP (suhl fuh meth OK mable zohl; trye METH oh prim) is a combination of a sulfonamide antibiotic and a second antibiotic, trimethoprim. It is used to treat or prevent certain kinds of bacterial infections. It will not work for colds, flu, or other viral infections. How should I use this medicine? Take this medicine by mouth with a full glass of water. Follow the directions on the prescription label. Take your medicine at regular intervals. Do not take it more often than directed. Do not skip doses or stop your medicine early. Talk to your construction equipment technician regarding the use of this medicine in children. Special care may be needed. This medicine has been used in children as young as 2 months of age. What side effects may I notice from receiving this medicine? Side effects that you should report to your doctor or health childcare attendant as soon as possible: allergic reactions like skin rash or hives, swelling of the face, lips, or tongue breathing problems fever or chills, sore throat irregular heartbeat, chest pain joint or muscle pain pain or difficulty passing urine red pinpoint spots on skin redness, blistering, peeling or loosening of the skin, including inside the mouth unusual bleeding or bruising unusually weak or tired yellowing of the eyes or skin Side effects that usually do not require medical attention (report to your doctor or health childcare attendant if they continue or are bothersome): diarrhea dizziness headache loss of appetite nausea, vomiting nervousness What may interact with this medicine? Do not take this medicine with any of the following medications: aminobenzoate potassium dofetilide metronidazole This medicine may also interact with the following medications: CORINE inhibitors like benazepril, enalapril, lisinopril, and ramipril cyclosporine digoxin diuretics indomethacin medicines for diabetes methenamine methotrexate phenytoin potassium supplements pyrimethamine sulfinpyrazone tricyclic antidepressants warfarin What if I miss a dose? If you miss a dose, take it as soon as you can. If it is almost time for your next dose, take only that dose. Do not take double or extra doses. Where should I keep my medicine? Keep out of the reach of children. Store at room temperature between 20 to 25 degrees C (68 to 77 degrees F). Protect from light. Throw away any unused medicine after the expiration date. What should I tell my health care provider before I take this medicine? They need to know if you have any of these conditions: anemia asthma being treated with anticonvulsants if you frequently drink alcohol containing drinks kidney disease liver disease low level of folic acid or [id number] dehydrogenase poor nutrition or malabsorption porphyria severe allergies thyroid disorder an unusual or allergic reaction to sulfamethoxazole, trimethoprim, sulfa drugs, other medicines, foods, dyes, or preservatives or trying to get breast-feeding What should I watch for while using this medicine? Tell your doctor or health childcare attendant if your symptoms do not improve. Drink several glasses of water a day to reduce the risk of kidney problems. Do not treat diarrhea with over the counter products. Contact your doctor if you have diarrhea that lasts more than 2 days or if it is severe and watery. This medicine can make you more sensitive to the sun. Keep out of the sun. If you cannot avoid being in the sun, wear protective clothing and use a sunscreen. Do not use sun lamps or tanning beds/booths. You have been given the following additional information: Abdominal Pain, Unknown Cause, (Female) Crohn's Disease Bladder Infection, Female (Adult) Depression Sulfamethoxazole, Trimethoprim Oral tablet (Electronically signed by Polo Reddy DO 12/06/2016 8:29)
--- NOTE | 2016-12-06 08:29 | ED MED RECONCILIATION SUMMARY ---
Patient: CAMILO BISWAS Medication Reconciliation Report [facility] VisitID: [id number] [place] [address] 31y, F Registration Date/Time: 12/04/2016 Weight: 77.1 kg Height/Length: 68 in. BMI: 25.9 ALLERGIES: morphine, Penicillin The patient's Home Medications are listed below: CONTINUE TAKING THE FOLLOWING MEDICATIONS: Albuterol Sulfate Inhalation Effexor XR Oral 75 mg, daily Ferrous Sulfate Oral (325 (65 Fe) mg), 2x a day KlonoPIN Oral Mirapex Oral (1 mg) 2 tablets, at bedtime PriLOSEC Oral (20 mg) 1 capsule, 2x a day Spironolactone Oral (50 mg) 1 tablet, daily Vitamin D Oral 10,000 unit The source(s) of the original Home Medication information: Not obtained. The following Medications were given to the patient in the Emergency Department: IV NS IV Fluids bolus 1000 mL over 1 hour(s), then 1000 mL/hr, administered: 12/05/2016 1:09:00 AM Zofran [IVP] IVP 4 mg, administered: 12/05/2016 2:01:00 AM PROTONIX [IVP] IVP 40 mg, administered: 12/05/2016 2:04:00 AM Dilaudid [IVP] IVP 0.5 mg, administered: 12/05/2016 4:13:00 AM Dilaudid [IVP] IVP 0.5 mg, administered: 12/05/2016 5:27:00 AM The following Medications were prescribed to the patient: Trimethoprim-Sulfamethoxazole DS: take 1 tablet orally every 12 hours for 3 days. No refill. -- Polo Reddy DO
--- NOTE | 2016-12-06 08:29 | ED MAR SUMMARY ---
..... Medication Administration Record [facility] [address] [place] [address] Patient: CAMILO BISWAS Visit ID: [id number] 31y, F Weight: 77.1 kg Height/Length: 68 in BMI: 25.9 ALLERGIES: morphine, Penicillin Start 01:09 12/05/2016 Nancy Pacheco R.N. Medication Administered: IV NS (SALINE), Dose: IV Fluids over 1 hour(s), Rate: 1000 mL/hr, Bolus: 1000 mL over 1 hour(s), Dispensed: 1000 mL bag, Site: #1 right AC. Medication Ordered: IV NS : initial bolus 1000 mL (1000 mL/hr), then 1000 mL/hr for X2 (NOW). Given 02:12/05/2016 Nancy Pacheco R.N. Medication Administered: ZOFRAN [IVP] (ONDANSETRON HCL), Dose: 4 mg IVP over 2 minute(s), Site: #1 right AC. Medication Ordered: Zofran IV 4 mg (NOW). Given 02:04 12/05/2016 Nancy Pacheco R.N. Medication Administered: PROTONIX [IVP] (PANTOPRAZOLE SODIUM), Dose: 40 mg IVP over 4 minute(s), Site: #1 right AC. Medication Ordered: Protonix IVP 40mg 40 mg (Mix in NS 10ml over 2min). Given 04:13 12/05/2016 Nancy Pacheco R.N. Medication Administered: DILAUDID [IVP] (HYDROMORPHONE HCL PF), Dose: 0.5 mg IVP over 2 minute(s), Site: #1 right AC. Medication Ordered: Dilaudid IV 0.5 mg (HIGH ALERT MEDICATION, NOW). Given 05:27 12/05/2016 Sheriff Gibbons R.N. Medication Administered: DILAUDID [IVP] (HYDROMORPHONE HCL PF), Dose: 0.5 mg IVP over 1 minute(s), Site: #1 right AC. Medication Ordered: Dilaudid IV 0.5 mg (HIGH ALERT MEDICATION, NOW).
== END 2016-12-05 09:57 | disposition short-term general hospital (02) ==
LOC: ED SRH 22:51
DX: K50.90 Crohn's disease, unspecified, without complications (principal); R19.7 Diarrhea, unspecified; N30.90 Cystitis, unspecified without hematuria; F33.1 Major depressive disorder, recurrent, moderate; R45.851 Suicidal ideations; Z88.0 Allergy status to penicillin; Z88.5 Allergy status to narcotic agent
CPT/HCPCS: 90004; 90100; 90469; 92010; 92760; 92761; 92762; 92763; 92764; 92765; 92766; 92767; 92780; 93070; 95059; 97000